=== PATIENT | male | born 2000 | race Hispanic/Latino ===

== ENCOUNTER 2024-02-27 21:45 | Emergency (ER) | payer SELFPAY | END 2024-02-27 23:22 | LOC: ERS 21:45 | DX: S01.01XA Laceration without foreign body of scalp, initial encounter (principal); V89.2XXA Person injured in unspecified motor-vehicle accident, traffic, initial encounter | CPT/HCPCS: 12002 ==

== ENCOUNTER 2024-03-05 11:37 | Emergency (ER) | payer SELFPAY | END 2024-03-05 12:36 | disposition home or self-care (01) | LOC: ERS 11:37 | DX: S01.01XD Laceration without foreign body of scalp, subsequent encounter (principal) ==